=== PATIENT | male | born 1950 | race Caucasian/White ===

== ENCOUNTER 2017-08-04 18:58 | Inpatient (IN) | payer MEDICARE ==
[~2017-08-04] VITALS: Ht 170.2 cm; Wt 68.0 kg
[2017-08-04] MEDS ORDERED: ASPIRIN 81 MG TAB PO STA (18:59)
[2017-08-04] MEDS ORDERED: morphine 4 MG/ML VIAL IV STA (18:59)
[2017-08-04] MEDS ORDERED: HEPARIN 1000 UNITS/ML 10 ML INJ IV STA ×2 (18:59→19:06)
[2017-08-04] MEDS ORDERED: ONDANSETRON 4 MG INJ IV STA (18:59)
[2017-08-04] MEDS ORDERED: HEPARIN 1000 UNITS/ML 10 ML INJ ONE (19:15)
[2017-08-04] MEDS ORDERED: NITROGLYCERIN (IC) 100 MCG/ML INJ ONE (19:15)
[2017-08-04] MEDS ORDERED: LIDOCAINE 1% (MDV) 20 ML INJ ONE (19:15)
[2017-08-04] MEDS ORDERED: VERAPAMIL 5 MG INJ ONE (19:15)
[2017-08-04] MEDS ORDERED: IODIXANOL LOCM 100 ML BTL ONE (19:16)
[2017-08-04] MEDS ORDERED: IOHEXOL 350MG/ML 50 ML BTL ONE (19:16)
[2017-08-04 19:22] LABS: BASOPHIL # 0.1 10^3/ul (0.0-0.1); BASOPHILS % 0.6 % (0.0-2.0); EOSINOPHILS # 0.2 10^3/ul (0.0-0.5); EOSINOPHILS % 1.7 % (0.0-7.0); HEMOGLOBIN 16.1 g/dl (14.0-18.0); LYMPHOCYTES # 3.5 10^3/ul (0.8-2.9); LYMPHOCYTES % 39.4 % (15.0-51.0); MEAN CORPUSCULAR HGB CONC 34.3 g/dl (32.0-37.0); MEAN CORPUSCULAR VOLUME 90.6 fl (82.0-101.0); MEAN PLATELET VOLUME 10.9 fl (7.4-10.4); MONOCYTE # 0.6 10^3/ul (0.3-0.9); NEUTROPHIL # 4.5 10^3/ul (1.6-7.5); NEUTROPHILS % 50.4 % (39.0-77.0); PLATELET COUNT 241 10^3/UL (140-415); RED BLOOD COUNT 5.19 10^6/ul (4.70-6.10); RED CELL DISTRIBUTION WIDTH 12.6 % (11.5-14.5); WHITE BLOOD COUNT 8.9 10^3/ul (4.8-10.8)
--- NOTE | 2017-08-04 19:26 | ERD ---
ER Documentation Chief Complaint Chief Complaint chest pain all day, worse x1hr HPI This 67-year-old male was brought in by ambulance for severe chest pain and an EKG that showed STEMI. He started having squeezing chest pain this morning intermittently and is gotten worse throughout the day. And was severe when he called paramedics. He also has shortness of breath nausea and has vomited twice. He has a history of hypertension. ROS All systems reviewed and are negative except as per history of present illness. Physical Exam Vitals Physical Exam Const: [] Moderate distress Head: Atraumatic Eyes: Normal Conjunctiva ENT: Normal External Ears, Nose and Mouth. Neck: Full range of motion..~No JVD Resp: Clear to auscultation bilaterally Cardio: Regular rate and rhythm, no murmurs Abd: Soft, non tender, non distended. Normal bowel sounds Skin: No petechiae or rashes, diaphoretic Back: No midline or flank tenderness Ext: No cyanosis, or edema Neur: Awake and alert and oriented 3, no focal deficits Psych: Normal Mood and Affect Result Diagram: 08/04/17190408/04/171904 Results 24 hrs Current Medications Medications (Trade) Dose Ordered Sig/Aleah Route PRN Reason Start Time Stop Time Status Last Admin Dose Admin Aspirin (Aspirin) 162 mg ONCE STAT PO 08/04/17 18:59 08/04/17 19:02 DC 08/04/17 19:06 Heparin Sodium (Porcine) (Heparin (1000 Units/ml)) 4,000 unit ONCE STAT IV 08/04/17 18:59 08/04/17 19:02 DC 08/04/17 19:11 Ondansetron HCl (Zofran Inj) 4 mg ONCE STAT IV 08/04/17 18:59 08/04/17 19:03 DC 08/04/17 19:06 Morphine Sulfate (morphine) 4 mg ONCE STAT IV 08/04/17 18:59 08/04/17 19:03 DC 08/04/17 19:06 Procedures/MDM ST elevation myocardial infarction. Paramedics called with the elderly patient with possible STEMI. They electronically sent their prehospital EKG which I read and showed significant consistent ST elevations in leads I and aVL with reciprocal depressions in inferior leads. Data Warehousing Manager was immediately activated at 1852, Dr. Hylton was called at 1855. Patient arrived minutes later I evaluated and called back Dr. Corona to confirm that this definitely seemed good patient would require Data Warehousing Manager. Data Warehousing Manager team quickly arrived. Patient was given 162 mg of aspirin to complete 324 as well as Zofran, 5000 units of heparin and 600 mg of Plavix. Patient was hypertensive systolic approaching 170s a diastolic of about 90-100. Heart rate remained stable. Patient mental status remained good. He was transferred to the Data Warehousing Manager at 1918. He is a fall his laboratories and discussed this case with packing clerk. In determining which will be admitting this patient currently and I will place the admission order. His family arrived at the patient had gone to Data Warehousing Manager when I spoke with them and discussed the procedure with him as well as the monitor findings and condition of the patient. EKG interpretation: Mild ST elevations in leads I and aVL reciprocal depressions in leads II, III and aVF. Normal sinus rhythm. Normal axis. Elevations at this point I cannot consistently 1 mm and every beat however considering patient's prehospital EKG I believe this is still concerning for acute ischemic injury. general distillery worker interpretation: Normal sinus rhythm without arrhythmia Critical care time greater than 35 minutes: This includes prehospital EKG evaluation as well as discussion with packing clerk prehospital, discussion with patient, review of chart, monitoring of vital signs, administration of heparin and platelet inhibitors, continuing discussion with packing clerk, discussion with admitting doctor, question with patient's family members, multiple visits the patient's bedside and at least 10 minutes spent at the patient's bedside prior to leaving the emergency room. Not include any billable procedures. Departure Diagnosis: Primary Impression: STEMI (ST elevation myocardial infarction) Additional Impression: Renal insufficiency Condition: Critical DARIO COLES DO Aug 04, 2017 19:23 Critical care time greater than 35 minutes: This includes prehospital EKG evaluation as well as discussion with packing clerk prehospital, discussion with patient, review of chart, monitoring of vital signs, administration of heparin and platelet inhibitors, continuing discussion with packing clerk, discussion with admitting doctor, question with patient's family members, multiple visits the patient's bedside and at least 10 minutes spent at the patient's bedside prior to leaving the emergency room. Not include any billable procedures. Departure Diagnosis: Primary Impression: STEMI (ST elevation myocardial infarction) Condition: Critical DARIO COLES DO Aug 04, 2017 19:23
[2017-08-04] MEDS ORDERED: CLOPIDOGREL 75 MG TAB PO ONE (19:30)
[2017-08-04] MEDS ORDERED: FENTAnyl 50 MCG/ML VIAL ONE (19:33)
[2017-08-04] MEDS ORDERED: MIDAZOLAM 1 MG/ML 2 ML INJ ONE (19:33)
[2017-08-04 19:45] LABS: INR 0.86; PROTIME 11.7 Sec (12.2-14.2); PT RATIO 0.9
[2017-08-04 19:46] LABS: PARTIAL THROMBOPLASTIN TIME 24.5 Sec (25.0-35.0)
[2017-08-04 19:51] LABS: CALCIUM 9.7 mg/dl (8.4-10.2); CREATININE 1.29 mg/dl (0.61-1.24); POTASSIUM 3.8 mmol/L (3.5-5.1)
[2017-08-04 20:02] LABS: TROPONIN-I 0.013 ng/ml (0.00-0.12)
--- NOTE | 2017-08-04 20:28 | CONS ---
Date/Time of Note Date/Time of Note DATE: 08/04/17 TIME: 20:26 Assessment/Plan Assessment/Plan Problems: (1) STEMI (ST elevation myocardial infarction) Status: Acute Additional Assessment/Plan Critical care note STEMI pt will be given 5000 Heparin Plavix 600mg oral urgnet [facility] for acute [place] Consultation Date/Type/Reason Admit Date/Time Date of Consultation: Aug 04, 2017 Type of Consultation: Intervention Cardiology Reason for Consultation STEMI Hx of Present Illness Patient is came in with mid sternal CP, EKG found to have RACHEL ant and ant lat leads. Constitutional: diaphoresis Eyes: pain Past Medical History Medical History: coronary artery disease, high cholesterol, hypertension Social History Smoking Status: Never smoker Exam/Review of Systems Vital Signs Vitals Vital Signs Date Time Temp Pulse Resp B/P Pulse Ox O2 Delivery O2 Flow Rate FiO2 08/04/17 19:11 Nasal Cannula 2 08/04/17 19:02 78 16 165/103 97 Exam Constitutional: alert, oriented Head: normocephalic Eyes: nl conjunctiva ENMT: nl external ears & nose Neck: supple Respiratory: clear to auscultation Cardiovascular: regular rate and rhythm Gastrointestinal: soft Results Result Diagram: 08/04/17190408/04/171904 Results 24 hrs Laboratory Tests Test 08/04/17 19:05 White Blood Count 8.9 Red Blood Count 5.19 Hemoglobin 16.1 Hematocrit 47.0 Mean Corpuscular Volume 90.6 Mean Corpuscular Hemoglobin 31.0 Mean Corpuscular Hemoglobin Concent 34.3 Red Cell Distribution Width 12.6 Platelet Count 241 Mean Platelet Volume 10.9 H Neutrophils % 50.4 Lymphocytes % 39.4 Monocytes % 7.0 Eosinophils % 1.7 Basophils % 0.6 Nucleated Red Blood Cells % 0.0 Neutrophils # 4.5 Lymphocytes # 3.5 H Monocytes # 0.6 Eosinophils # 0.2 Basophils # 0.1 Nucleated Red Blood Cells # 0.0 Prothrombin Time 11.7 L Prothrombin Time Ratio 0.9 INR International Normalized Ratio 0.86 Activated Partial Thromboplast Time 24.5 L Sodium Level 145 H Potassium Level 3.8 Chloride Level 104 Carbon Dioxide Level 27 Anion Gap 18 H Blood Urea Nitrogen 19 Creatinine 1.29 H Glucose Level 211 Calcium Level 9.7 Troponin I 0.013 JESS MADRIGAL MD Aug 04, 2017 20:28
[2017-08-04 20:35] VITALS: PULSE 62
[2017-08-04 21:30] VITALS: BP 135/76; PULSE 69; RESP 12
[2017-08-04 22:00] VITALS: BP 133/75; PULSE 63; RESP 22
--- NOTE | 2017-08-04 22:01 | RADRPT ---
PROCEDURE: X-ray Chest. CLINICAL INDICATION: Chest pain. TECHNIQUE: Single view chest x-ray. COMPARISON: None available. FINDINGS: The cardiomediastinal silhouette is enlarged. There is diffuse prominence of the inters titium without focal consolidation, effusion, or pneumothorax. There are no acute osseous abnormali ties. IMPRESSION: 1. Cardiomegaly with findings suggestive of mild to moderate hydrostatic edema. Correlate clinicall y for CHF. RPTAT: HLBP .He Damon MD, Date Time Electronically viewed and signed by .He Damon MD, on 08/04/2017 22:01 .P/
[2017-08-04 22:30] VITALS: BP 137/77; PULSE 66; RESP 16
[2017-08-04 23:00] VITALS: BP 137/84; PULSE 58; RESP 13
[2017-08-04 23:14] VITALS: Ht 170.2 cm; Wt 68.0 kg
[2017-08-05] VITALS (25 sets, daily range): BP systolic 127–166; BP diastolic 73–100; PULSE 52–70; RESP 13–20
[2017-08-05] MEDS ORDERED: ZOLPIDEM 5 MG TAB PO PRN
[2017-08-05] MEDS ORDERED: SOD CHLORIDE 0.9% 1,000 ML IV SCH
[2017-08-05] MEDS ORDERED: morphine 2 MG INJ IV PRN ×2 (02:30)
[2017-08-05] MEDS ORDERED: ACETAMINOPHEN 325 MG TAB PO PRN ×2 (02:30)
[2017-08-05] MEDS ORDERED: ONDANSETRON 4 MG INJ IV PRN (02:30)
--- NOTE | 2017-08-05 04:02 | SP ---
DATE OF PROCEDURE: 08/04/2017 INDICATIONS FOR THE PROCEDURE: Acute ST elevation myocardial infarction. PROCEDURES: 1. Selective right and left coronary angiography. 2. Left ventricular pressure measurement and left heart catheterization with left ventriculography. 3. Acute myocardial infarction successful intervention of mid LAD with 3.5 x 12 mm and 3.0 x 38 mm drug-eluting stent. 4. Supervised procedural sedation intracoronary nitroglycerin injection. PROCEDURE DETAILS: After informed consent, the patient was brought to cardiac catheterization lab. Patient came in with a midsternal chest pressure-like symptom with ST elevation in anterior and ant erolateral leads. The patient has been explained in detail regarding the procedure and procedure co mplications as well as a family member and everybody understands and agrees. The patient was preppe d and draped in supine position on the cardiac catheterization lab. Right radial artery was accesse d with a 6-[place] slender sheath. Followed by that over the 0.035 wire, an EBU guiding catheter was engaged into left main, found to have acute LAD stenosis. A Runthrough wire was crossed the lesion and successful. A 2.5 x 12 mm balloon angioplasty was performed at 8 atmosphere with ELIA 3 flow. Followed by that, a 3.0 x 38 mm stent was placed into the diffusely diseased middle LAD segment and second stent proximal to that was placed 3.5 x 12 mm. Followed by that, post-dilatation was perfor med with a 3.5 x 15 mm noncompliant balloon at 16 atmospheres with a good angiographic result. Alyssa l angiography was taken in the left system with a good angiographic result. From there, exchanged i nto a JR4 diagnostic catheter, found to have a right coronary artery distal RCA 90% stenosis with a medium size vessel, stable chronic disease. There is also down in the RPL possibly a BANK CONSULTANT. Followed by that, the JR catheter was entered into the LV and LVEDP and LV gram was performed. All the catheters and wires had been removed over the wire without any complications. COMPLICATIONS: None. CONTRAST: mL. CORONARY FINDINGS: 1. Large left main, almost 6.0 to 8.0 mm with mild diffuse disease. 2. Left anterior descending artery: Proximal mild diffuse disease. Mid segment has a 99% thrombot ic lesion with ELIA 2 flow. There is a diffuse mid LAD multiple tandem 70% to 80% stenosis. There is distal LAD with moderate diffuse disease. 3. Left circumflex artery, mild diffuse disease, large circumflex has multiple OMs coming out. 4. Right coronary artery proximal and mid segment, mild diffuse disease. Distal RCA has a 99% sten osis going into the RPDA, medium size vessels. There is an RPL BANK CONSULTANT as well. LEFT VENTRICULAR FINDINGS: LVEDP is 15 mmHg. LVEF is 55%. No aortic stenosis. CONCLUSIONS: Successful acute thrombotic LAD intervention with a 3.5 x 12 mm and 3.0 x 38 mm drug-e luting stent. There is stable distal RCA 90% lesion. No other significant coronary artery disease. RECOMMENDATIONS: 1. Aspirin and Plavix at least for 1 year. 2. 2D echocardiography. 3. Admit to ICU. 4. IV hydration. 5. Dr. Brennan consultation for nephrology. Dictated By: JESS MADRIGAL MD ML/NICOLÁS Conf#: [id number] DID#: [id number]
[2017-08-05 05:30] LABS: CK-MB 23.6 ng/ml (0.0-2.4)
[2017-08-05 05:32] LABS: TROPONIN-I 4.27 ng/ml (0.00-0.12)
[2017-08-05] MEDS ORDERED: PANTOPRAZOLE 40 MG INJ IV SCH (06:00)
[2017-08-05 06:27] LABS: CK-MB 31.9 ng/ml (0.0-2.4)
[2017-08-05 06:29] LABS: TROPONIN-I 6.67 ng/ml (0.00-0.12)
--- NOTE | 2017-08-05 08:00 | HP ---
Date/Time of Note Date/Time of Note DATE: 08/05/17 TIME: 07:20 Assessment/Plan VTE Prophylaxis VTE Prophylaxis Intervention: SCD's Lines/Catheters IV Catheter Type (from Nrs): Peripheral IV Assessment/Plan Chief Complaint/Hosp Course This is a 67-year-old male being admitted to the ICU floor for: #1 #1 STEMI: EKG interpretation: ST elevations in leads I and aVL reciprocal depressions in leads II, III and aVF. Successful acute thrombotic LAD intervention with a 3.5 x 12 mm and 3.0 x 38 mm drug-eluting stent. 2D echocardiogram in a.m.1. Aspirin and Plavix at least for 1 year. Check lipid panel, statin. #2 hypertension: Continue monitor, restart home medications #3 acute kidney injury: Likely prerenal etiology, patient also underwent stenting. Will consult nephrology #4 DVT GI prophylaxis: SCDs, Protonix Further treatment strategy will be implemented as per the clinical course Problems: HPI/ROS Admit Date/Time Admit Date/Time Hx of Present Illness Chief complaint: Chest pain This 67-year-old male was brought in by ambulance for severe chest pain and an EKG that showed STEMI. He started having squeezing chest pain Monday morning intermittently and is gotten worse throughout the day. And was severe when he called paramedics. He also has shortness of breath nausea and has vomited twice. Allergies: NKDA Medications: See AMELIA ORTA Const: As per HPI Eyes : No pain discharge or redness or change in visual acuity ENT: No pain, sore throat, congestion, congestion, dysphagia or discharge Respiratory: No shortness of breath, cough, sputum, wheezing, or pleuritic pain Cardiovascular: As per HPI GI : no change in appetite, abdominal pain, nausea, vomiting, diarrhea, constipation, or change in the color his stool Genitourinary: No dysuria, hematuria, flank pain , discharge or CVA tenderness Musculoskeletal: No joint pain, back pain, neck pain, restricted range of motion in neck or joints Skin: No rash, bruising or hives Neuro: No headache, dizziness, syncope, seizure, focal weakness Endocrine: No polyuria, polydipsia, temperature intolerance Psych: No hallucination, depression, anxiety or suicidal ideation Eyes: pain PMH/Family/Social Past Medical History Medical History: coronary artery disease, high cholesterol, hypertension Past Surgical History Past Surgical Hx: no surgical history Family History Significant Family History: no pertinent family hx Social History Alcohol Use: none Smoking Status: Never smoker Drug Use: none Exam/Review of Systems Vital Signs Vitals Vital Signs Date Time Temp Pulse Resp B/P Pulse Ox O2 Delivery O2 Flow Rate FiO2 08/05/17 05:00 52 15 156/91 96 08/05/17 03:30 98.9 08/05/17 03:00 Room Air 08/04/17 19:11 2 Intake and Output 08/04/17 08/04/17 08/05/17 14:59 22:59 06:59 Intake Total 250 ml Output Total 2000 ml Balance -1750 ml Exam Exam General: Patient is status post cardiac catheterization, he is lying in bed sleeping easily arousable and in no acute distress HEENT: Atraumatic, normocephalic. The pupils are equal, round and reactive. Extraocular motor are intact Neck: Supple with full range of motion. No rigidity or meningismus Chest: Nontender Lungs: Clear to auscultation bilaterally no crackles rales or wheezing Heart: Normal S1-S2, Regular rhythm and rate. No overt murmurs appreciated Abdomen: Soft , nontender, nondistended , bowel sounds are present. No guarding no rebound tenderness , No masses or organomegaly. No costovertebral temporal angle mass Extremities: Normal to inspection, no edema no cyanosis Neurologic: Normal mental status, speech normal, cranial nerves II through XII are intact, motor and sensory are intact, no focal weakness Additional Comments EKG interpretation: Mild ST elevations in leads I and aVL reciprocal depressions in leads II, III and aVF. Normal sinus rhythm. Normal axis. PROCEDURE: X-ray Chest. CLINICAL INDICATION: Chest pain. TECHNIQUE: Single view chest x-ray. COMPARISON: None available. FINDINGS: The cardiomediastinal silhouette is enlarged. There is diffuse prominence of the interstitium without focal consolidation, effusion, or pneumothorax. There are no acute osseous abnormalities. IMPRESSION: 1. Cardiomegaly with findings suggestive of mild to moderate hydrostatic edema. Correlate clinically for CHF. RPTAT: HLBP .He Damon MD, MD Date Time Electronically viewed and signed by .He Damon MD, on 08/04/2017 22:01 .P/ CC: DARIO COLES DO CORONARY FINDINGS: 1. Large left main, almost 6.0 to 8.0 mm with mild diffuse disease. 2. Left anterior descending artery: Proximal mild diffuse disease. Mid segment has a 99% thrombotic lesion with ELIA 2 flow. There is a diffuse mid LAD multiple tandem 70% to 80% stenosis. There is distal LAD with moderate diffuse disease. 3. Left circumflex artery, mild diffuse disease, large circumflex has multiple OMs coming out. 4. Right coronary artery proximal and mid segment, mild diffuse disease. Distal RCA has a 99% stenosis going into the RPDA, medium size vessels. There is an RPL PROGRAM DIRECTOR/MORNING SHOW HOST as well. Labs Result Diagram: 08/04/17 19008/04/17 1905 Medications Medications Current Medications Sodium Chloride (NS) 1,000 ml @ 75 mls/hr [id number] IV Last administered on t 02:36; Admin Dose 75 MLS/HR; Start 08/05/17 at 00:00; Stop 08/05/17 at 12:00 Clopidogrel Bisulfate (plaVIX) 75 mg DAILY PO ; Start 08/05/17 at 09:00 Aspirin (Halfprin) 81 mg DAILY PO ; Start 08/05/17 at 09:00 Atorvastatin Calcium (Lipitor) 80 mg HS PO ; Start 08/05/17 at 21:00 Carvedilol (Coreg) 12.5 mg BID PO ; Start 08/05/17 at 09:00 Morphine Sulfate (morphine) 2 mg Q4H PRN IV PAIN; Start 08/05/17 at 00:00 Acetaminophen (Tylenol Tab) 325 mg Q4H PRN PO PAIN AND OR ELEVATED TEMP; Start 08/05/17 at 00:00 Zolpidem Tartrate (Ambien) 10 mg HS PRN PO INSOMNIA; Start 08/05/17 at 00:00 Ondansetron HCl (Zofran Inj) 4 mg Q6H PRN IV NAUSEA AND/OR VOMITING; Start at 02:30 Acetaminophen (Tylenol Tab) 650 mg Q6H PRN PO PAIN LEVEL 1-3 OR FEVER; Start 08/05/17 at 02:30 Morphine Sulfate (morphine) 2 mg Q4H PRN IV PAIN LEVEL 7-10; Start 08/05/17 at 02:30 Pantoprazole (Protonix Iv) 40 mg DAILY@06 IV Last administered on 08/05/17t 05 :26; Admin Dose 40 MG; Start 08/05/17 at 06:00 MIKE MIN Aug 05, 2017 08:00
[2017-08-05] MEDS: CLOPIDOGREL 75 MG TAB PO SCH (08:09)
[2017-08-05] MEDS: ASPIRIN (EC) 81 MG TAB PO SCH (08:09)
--- NOTE | 2017-08-05 13:38 | CONS ---
Date/Time of Note Date/Time of Note DATE: 08/05/17 TIME: 13:37 Assessment/Plan Assessment/Plan Additional Assessment/Plan 1. Acute kidney injury due to STEMI causing Prerenal azotemia + Cardiorenal syndrome 2. Acute STEMI s/p LHC with drug eluting stent placement in LAD 3. HTN 4. HL Plan : Thanks for consultion, pt has CALVIN due to # 1 Continue IVF NS-e xpecing cr to iproved with IVF hydration will order Urine eosinophils to assess for ELMO No need for renal US at this time we will continue to follow up on patient Thanks for consultation Consultation Date/Type/Reason Admit Date/Time Jul Date of Consultation: Aug 04, 2017 Type of Consultation: NEPHROLOGY Reason for Consultation acute kidney injury, STEMI s/p cardiac cath, to assess for contrast induced nephropathy Referring Provider: MIKE MIN Hx of Present Illness 67 M with PMhx of HTN, admitted with acute STEMI s/p LHC with stent placement in LAD, drug eluting stent. pt is noted to have elevated Cr and renal has been consulted for CALVIN, to assess for Contrast induced nephropathy. Subjective hx not possible: pt non-verbal Constitutional: diaphoresis Eyes: pain ENT: no complaints Respiratory: no complaints Cardiovascular: chest pain, lightheadedness Gastrointestinal: no complaints Genitourinary: no complaints Musculoskeletal: no complaints Skin: no complaints Neurologic: no complaints Endocrine: no complaints Lymphatic: no complaints Psychological: no complaints Immunologic: no complaints Past Medical History Medical History: coronary artery disease, high cholesterol, hypertension Past Surgical History Past Surgical Hx: no surgical history Social History Alcohol Use: none Smoking Status: Never smoker Drug Use: none Exam/Review of Systems Vital Signs Vitals Vital Signs Date Time Temp Pulse Resp B/P Pulse Ox O2 Delivery O2 Flow Rate FiO2 08/05/17 12:00 98.6 61 13 149/84 95 Room Air 08/05/17 08:00 2.0 Intake and Output 08/04/17 08/04/17 08/05/17 15:00 23:00 07:00 Intake Total 325 ml Output Total 2000 ml Balance -1675 ml Exam Constitutional: alert Psych: no complaints Head: normocephalic Eyes: nl conjunctiva ENMT: nl external ears & nose Neck: non-tender, supple Respiratory: clear to auscultation, normal air movement Cardiovascular: nl pulses, regular rate and rhythm Gastrointestinal: non-tender, soft Musculoskeletal: nl extremities to inspection, nl gait and stance Neurological: STRAPPER II-XII intact, nl mental status, nl speech, nl strength Skin: nl turgor, rash or lesions Lymph: nl lymph nodes Results Result Diagram: 08/04/17190408/04/171904 Results 24 hrs Laboratory Tests Test 08/04/17 19:05 08/05/17 02:24 08/05/17 04:33 White Blood Count 8.9 Red Blood Count 5.19 Hemoglobin 16.1 Hematocrit 47.0 Mean Corpuscular Volume 90.6 Mean Corpuscular Hemoglobin 31.0 Mean Corpuscular Hemoglobin Concent 34.3 Red Cell Distribution Width 12.6 Platelet Count 241 Mean Platelet Volume 10.9 H Neutrophils % 50.4 Lymphocytes % 39.4 Monocytes % 7.0 Eosinophils % 1.7 Basophils % 0.6 Nucleated Red Blood Cells % 0.0 Neutrophils # 4.5 Lymphocytes # 3.5 H Monocytes # 0.6 Eosinophils # 0.2 Basophils # 0.1 Nucleated Red Blood Cells # 0.0 Prothrombin Time 11.7 L Prothrombin Time Ratio 0.9 INR International Normalized Ratio 0.86 Activated Partial Thromboplast Time 24.5 L Sodium Level 145 H Potassium Level 3.8 Chloride Level 104 Carbon Dioxide Level 27 Anion Gap 18 H Blood Urea Nitrogen 19 Creatinine 1.29 H Glucose Level 211 Calcium Level 9.7 Troponin I 0.013 4.270 *H 6.670 *H Creatine Kinase 329 H 433 H Creatine Kinase Index 7.2 7.4 Creatinine Kinase MB (Mass) 23.60 H 31.90 H Medications Medications Current Medications Clopidogrel Bisulfate (plaVIX) 75 mg DAILY PO Last administered on 08/05/17 08:09; Admin Dose 75 MG; Start 08/05/17 at 09:00 Aspirin (Halfprin) 81 mg DAILY PO Last administered on 08/05/17 08:09; Admin Dose 81 MG; Start 08/05/17 at 09:00 Atorvastatin Calcium (Lipitor) 80 mg HS PO ; Start 08/05/17 at 21:00 Carvedilol (Coreg) 12.5 mg BID PO Last administered on 08/05/17 08:09; Admin Dose 12.5 MG; Start 08/05/17 at 09:00 Acetaminophen (Tylenol Tab) 325 mg Q4H PRN PO PAIN AND OR ELEVATED TEMP; Start 08/05/17 at 00:00 Zolpidem Tartrate (Ambien) 10 mg HS PRN PO INSOMNIA; Start 08/05/17 at 00:00 Ondansetron HCl (Zofran Inj) 4 mg Q6H PRN IV NAUSEA AND/OR VOMITING; Start at 02:30 Acetaminophen (Tylenol Tab) 650 mg Q6H PRN PO PAIN LEVEL 1-3 OR FEVER; Start 08/05/17 at 02:30 Morphine Sulfate (morphine) 2 mg Q4H PRN IV PAIN LEVEL 7-10; Start 08/05/17 at 02:30 Pantoprazole (Protonix Tab) 40 mg DAILY@06 PO ; Start 08/06/17 at 06:00 DUSTIN AGUILAR MD Aug 05, 2017 13:38
[2017-08-05] MEDS ORDERED: hydrALAzine 20 MG INJ IV PRN (14:00)
[2017-08-05] MEDS ORDERED: HYDROCODONE/APAP (5/325) TAB PO PRN (14:00)
[2017-08-05 15:36] LABS: BASOPHILS % 0.3 % (0.0-2.0); EOSINOPHILS # 0.2 10^3/ul (0.0-0.5); EOSINOPHILS % 1.8 % (0.0-7.0); HEMATOCRIT 42.5 % (42.0-52.0); HEMOGLOBIN 14.7 g/dl (14.0-18.0); LYMPHOCYTES # 1.9 10^3/ul (0.8-2.9); LYMPHOCYTES % 20.3 % (15.0-51.0); MEAN CORPUSCULAR HEMOGLOBIN 31.1 pg (29.0-33.0); MEAN CORPUSCULAR HGB CONC 34.6 g/dl (32.0-37.0); MEAN PLATELET VOLUME 10.5 fl (7.4-10.4); MONOCYTE # 0.8 10^3/ul (0.3-0.9); MONOCYTES % 8.2 % (0.0-11.0); NEUTROPHIL # 6.6 10^3/ul (1.6-7.5); NEUTROPHILS % 68.7 % (39.0-77.0); PLATELET COUNT 211 10^3/UL (140-415); RED BLOOD COUNT 4.72 10^6/ul (4.70-6.10); RED CELL DISTRIBUTION WIDTH 12.5 % (11.5-14.5); WHITE BLOOD COUNT 9.5 10^3/ul (4.8-10.8)
[2017-08-05 16:00] LABS: CALCIUM 8.6 mg/dl (8.4-10.2); CREATININE 1.26 mg/dl (0.61-1.24); MAGNESIUM 1.8 mg/dl (1.7-2.5); PHOSPHORUS 3.4 mg/dl (2.5-4.9); POTASSIUM 3.9 mmol/L (3.5-5.1)
[2017-08-05 19:36] LABS: CALCIUM 8.6 mg/dl (8.4-10.2); CREATININE 1.19 mg/dl (0.61-1.24)
[2017-08-05] MEDS ORDERED: ATORVASTATIN 80 MG TAB PO SCH (21:00)
[2017-08-06] VITALS (7 sets, daily range): BP systolic 113–131; BP diastolic 66–82; PULSE 59–63; RESP 18–20
[2017-08-06] MEDS ORDERED: PANTOPRAZOLE (EC) 40 MG TAB PO SCH (06:00)
[2017-08-06] MEDS: ASPIRIN (EC) 81 MG TAB PO SCH (08:41)
[2017-08-06] MEDS: CLOPIDOGREL 75 MG TAB PO SCH (08:41)
[2017-08-06 09:35] LABS: HAAIG REFLEX REFLEX FILED
[2017-08-06 09:40] LABS: BASOPHILS % 0.4 % (0.0-2.0); EOSINOPHILS # 0.2 10^3/ul (0.0-0.5); EOSINOPHILS % 1.5 % (0.0-7.0); HEMATOCRIT 45.6 % (42.0-52.0); HEMOGLOBIN 15.3 g/dl (14.0-18.0); LYMPHOCYTES # 2.5 10^3/ul (0.8-2.9); LYMPHOCYTES % 23.3 % (15.0-51.0); MEAN CORPUSCULAR HGB CONC 33.6 g/dl (32.0-37.0); MEAN CORPUSCULAR VOLUME 89.4 fl (82.0-101.0); MONOCYTE # 0.8 10^3/ul (0.3-0.9); MONOCYTES % 7.1 % (0.0-11.0); NEUTROPHIL # 7.3 10^3/ul (1.6-7.5); PLATELET COUNT 210 10^3/UL (140-415); RED CELL DISTRIBUTION WIDTH 12.7 % (11.5-14.5); WHITE BLOOD COUNT 10.9 10^3/ul (4.8-10.8)
[2017-08-06 10:02] LABS: INR 0.88; PROTIME 11.9 Sec (12.2-14.2); PT RATIO 0.9
[2017-08-06 10:06] LABS: ALBUMIN 3.8 g/dl (3.3-4.9); ALBUMIN/GLOBULIN RATIO 1.02; BILIRUBIN,INDIRECT 0.5 mg/dl (0-1.1); BILIRUBIN,TOTAL 0.5 mg/dl (0.2-1.3); CALCIUM 9.2 mg/dl (8.4-10.2); CREATININE 1.2 mg/dl (0.61-1.24); POTASSIUM 4.3 mmol/L (3.5-5.1); TOTAL PROTEIN 7.5 g/dl (6.1-8.1)
[2017-08-06 10:08] LABS: CHOL/HDL RATIO 3.7 RATIO; MAGNESIUM 1.9 mg/dl (1.7-2.5); PHOSPHORUS 3.2 mg/dl (2.5-4.9)
[2017-08-06 10:54] LABS: HEPATITIS B CORE ANTIBODY NEGATIVE (NEGATIVE)
--- NOTE | 2017-08-06 11:16 | CONS ---
Date/Time of Note Date/Time of Note DATE: 08/06/17 TIME: 11:15 Consult Date/Type/Reason Admit Date/Time Aug 04, 2017 at 22:25 Initial Consult Date 08/04/17 Type of Consultation: Cardiology Ordering Provider: MIKE MIN Objective Vital Signs Date Time Temp Pulse Resp B/P Pulse Ox O2 Delivery O2 Flow Rate FiO2 08/06/17 08:39 98.0 66 18 131/82 98 08/05/17 16:00 Room Air 08/05/17 08:00 2.0 Intake and Output 08/05/17 08/05/17 08/06/17 14:59 22:59 06:59 Intake Total 300 ml 500 ml Output Total 450 ml 400 ml Balance -150 ml 100 ml Results/Medications Result Diagram: 08/06/17 0832 08/06/17 0832 Results 24 hrs Laboratory Tests Test 08/05/17 15:23 08/05/17 19:00 08/06/17 08:32 White Blood Count 9.5 10.9 H Red Blood Count 4.72 5.10 Hemoglobin 14.7 15.3 Hematocrit 42.5 45.6 Mean Corpuscular Volume 90.0 89.4 Mean Corpuscular Hemoglobin 31.1 30.0 Mean Corpuscular Hemoglobin Concent 34.6 33.6 Red Cell Distribution Width 12.5 12.7 Platelet Count 211 210 Mean Platelet Volume 10.5 H 11.0 H Neutrophils % 68.7 67.0 Lymphocytes % 20.3 23.3 Monocytes % 8.2 7.1 Eosinophils % 1.8 1.5 Basophils % 0.3 0.4 Nucleated Red Blood Cells % 0.0 0.0 Neutrophils # 6.6 7.3 Lymphocytes # 1.9 2.5 Monocytes # 0.8 0.8 Eosinophils # 0.2 0.2 Basophils # 0.0 0.0 Nucleated Red Blood Cells # 0.0 0.0 Sodium Level 139 138 140 Potassium Level 3.9 4.0 4.3 Chloride Level 106 106 106 Carbon Dioxide Level 25 22 25 Anion Gap 12 14 13 Blood Urea Nitrogen 13 15 16 Creatinine 1.26 H 1.19 1.20 Glucose Level 131 # 126 131 Hemoglobin A1c 6.9 H Calcium Level 8.6 8.6 9.2 Phosphorus Level 3.4 3.2 Magnesium Level 1.8 1.9 Prothrombin Time 11.9 L Prothrombin Time Ratio 0.9 INR International Normalized Ratio 0.88 Activated Partial Thromboplast Time 26.0 Uric Acid 7.0 Total Bilirubin 0.5 Direct Bilirubin 0.00 Indirect Bilirubin 0.5 Aspartate Amino Transf (AST/SGOT) 55 H Alanine Aminotransferase (ALT/SGPT) 44 Alkaline Phosphatase 57 Total Protein 7.5 Albumin 3.8 Globulin 3.70 H Albumin/Globulin Ratio 1.02 Triglycerides Level 147 Cholesterol Level 226 H LDL Cholesterol, Calculated 137 HDL Cholesterol 60 Cholesterol/HDL Ratio 3.7 Hepatitis A Antibody Total POSITIVE H Hepatitis B Surface Antigen NEGATIVE Hepatitis B Core Total Antibody NEGATIVE Hepatitis C Antibody NEGATIVE HIV (1&2) Antibody NEGATIVE Medications Current Medications Clopidogrel Bisulfate (plaVIX) 75 mg DAILY PO Last administered on 08/06/17 08:41; Admin Dose 75 MG; Start 08/05/17 at 09:00 Aspirin (Halfprin) 81 mg DAILY PO Last administered on 08/06/17 08:41; Admin Dose 81 MG; Start 08/05/17 at 09:00 Atorvastatin Calcium (Lipitor) 80 mg HS PO Last administered on 08/05/17 20: 31; Admin Dose 80 MG; Start 08/05/17 at 21:00 Carvedilol (Coreg) 12.5 mg BID PO Last administered on 08/06/17 08:41; Admin Dose 12.5 MG; Start 08/05/17 at 09:00 Zolpidem Tartrate (Ambien) 10 mg HS PRN PO INSOMNIA; Start 08/05/17 at 00:00 Ondansetron HCl (Zofran Inj) 4 mg Q6H PRN IV NAUSEA AND/OR VOMITING; Start at 02:30 Acetaminophen (Tylenol Tab) 650 mg Q6H PRN PO PAIN LEVEL 1-3 OR FEVER; Start 08/05/17 at 02:30 Morphine Sulfate (morphine) 2 mg Q4H PRN IV PAIN LEVEL 7-10; Start 08/05/17 at 02:30 Pantoprazole (Protonix Tab) 40 mg DAILY@06 PO Last administered on 08/06/17 06:33; Admin Dose 40 MG; Start 08/06/17 at 06:00 Hydralazine HCl (Apresoline) 10 mg Q6H PRN IV SBP>160; Start 08/05/17 at 14:00 Acetaminophen/ Hydrocodone Bitart ([place] (5/325)) 1 tab Q6H PRN PO Pain Last administered on 08/05/17t 14:12; Admin Dose 1 TAB; Start 08/05/17 at 14:00 Assessment/Plan Chief Complaint/Hosp Course Patient is came in with mid sternal CP, EKG found to have RACHEL ant and ant lat leads. Problems: Additional Assessment/Plan Pt post STEMI Lad STABLE PLAN TO D.C HOME TODAYY ASA PLAVIX STATIN BB CR IMPROVED CARDIAC REHAB OUT PT D/W FAMILY JESS MADRIGAL MD Aug 06, 2017 11:16
--- NOTE | 2017-08-06 12:04 | CONS ---
Date/Time of Note Date/Time of Note DATE: 08/06/17 TIME: 12:00 Assessment/Plan Assessment/Plan Chief Complaint/Hosp Course 67 M with PMhx of HTN, admitted with acute STEMI s/p C with stent placement in LAD, drug eluting stent. pt is noted to have elevated Cr and renal has been consulted for CALVIN, to assess for Contrast induced nephropathy. Problems: Additional Assessment/Plan 1. Acute kidney injury due to STEMI causing Prerenal azotemia + Cardiorenal syndrome 2. Acute STEMI s/p LHC with drug eluting stent placement in LAD 3. HTN 4. HL Plan : Cr improved to 1.2 with IV Fluids, d/c IVF NS continue current meds, ok to have ACEI/ARB- we will start lisinopril 2.5 mg po daily No need for renal US at this time we will continue to follow up on patient Consultation Date/Type/Reason Admit Date/Time Aug 04, 2017 at 22:25 Initial Consult Date 08/04/17 Type of Consultation: NEPHROLOGY Referring Provider: MIKE MIN 24 HR Interval Summary Free Text/Dictation Cr improved to 1.2, BP stable, afebrile Exam/Review of Systems Vital Signs Vitals Vital Signs Date Time Temp Pulse Resp B/P Pulse Ox O2 Delivery O2 Flow Rate FiO2 08/06/17 08:39 98.0 66 18 131/82 98 08/05/17 16:00 Room Air 08/05/17 08:00 2.0 Intake and Output 08/05/17 08/05/17 08/06/17 15:00 23:00 07:00 Intake Total 225 ml 500 ml Output Total 450 ml 400 ml Balance -225 ml 100 ml Exam Constitutional: alert Respiratory: clear to auscultation, normal air movement Cardiovascular: nl pulses, regular rate and rhythm Gastrointestinal: non-tender, soft Musculoskeletal: nl extremities to inspection, nl gait and stance Neurological: CUSTOMER STRATEGY MANAGER II-XII intact, nl mental status, nl speech, nl strength Results Result Diagram: 08/06/17 0832 08/06/17 0832 Results 24 hrs Laboratory Tests Test 08/05/17 15:23 08/05/17 19:00 08/06/17 08:32 White Blood Count 9.5 10.9 H Red Blood Count 4.72 5.10 Hemoglobin 14.7 15.3 Hematocrit 42.5 45.6 Mean Corpuscular Volume 90.0 89.4 Mean Corpuscular Hemoglobin 31.1 30.0 Mean Corpuscular Hemoglobin Concent 34.6 33.6 Red Cell Distribution Width 12.5 12.7 Platelet Count 211 210 Mean Platelet Volume 10.5 H 11.0 H Neutrophils % 68.7 67.0 Lymphocytes % 20.3 23.3 Monocytes % 8.2 7.1 Eosinophils % 1.8 1.5 Basophils % 0.3 0.4 Nucleated Red Blood Cells % 0.0 0.0 Neutrophils # 6.6 7.3 Lymphocytes # 1.9 2.5 Monocytes # 0.8 0.8 Eosinophils # 0.2 0.2 Basophils # 0.0 0.0 Nucleated Red Blood Cells # 0.0 0.0 Sodium Level 139 138 140 Potassium Level 3.9 4.0 4.3 Chloride Level 106 106 106 Carbon Dioxide Level 25 22 25 Anion Gap 12 14 13 Blood Urea Nitrogen 13 15 16 Creatinine 1.26 H 1.19 1.20 Glucose Level 131 # 126 131 Hemoglobin A1c 6.9 H Calcium Level 8.6 8.6 9.2 Phosphorus Level 3.4 3.2 Magnesium Level 1.8 1.9 Prothrombin Time 11.9 L Prothrombin Time Ratio 0.9 INR International Normalized Ratio 0.88 Activated Partial Thromboplast Time 26.0 Uric Acid 7.0 Total Bilirubin 0.5 Direct Bilirubin 0.00 Indirect Bilirubin 0.5 Aspartate Amino Transf (AST/SGOT) 55 H Alanine Aminotransferase (ALT/SGPT) 44 Alkaline Phosphatase 57 Total Protein 7.5 Albumin 3.8 Globulin 3.70 H Albumin/Globulin Ratio 1.02 Triglycerides Level 147 Cholesterol Level 226 H LDL Cholesterol, Calculated 137 HDL Cholesterol 60 Cholesterol/HDL Ratio 3.7 Hepatitis A Antibody Total POSITIVE H Hepatitis B Surface Antigen NEGATIVE Hepatitis B Core Total Antibody NEGATIVE Hepatitis C Antibody NEGATIVE HIV (1&2) Antibody NEGATIVE Medications Medications Current Medications Clopidogrel Bisulfate (plaVIX) 75 mg DAILY PO Last administered on 08/06/17 08:41; Admin Dose 75 MG; Start 08/05/17 at 09:00 Aspirin (Halfprin) 81 mg DAILY PO Last administered on 08/06/17 08:41; Admin Dose 81 MG; Start 08/05/17 at 09:00 Atorvastatin Calcium (Lipitor) 80 mg HS PO Last administered on 08/05/17 20: 31; Admin Dose 80 MG; Start 08/05/17 at 21:00 Carvedilol (Coreg) 12.5 mg BID PO Last administered on 08/06/17 08:41; Admin Dose 12.5 MG; Start 08/05/17 at 09:00 Zolpidem Tartrate (Ambien) 10 mg HS PRN PO INSOMNIA; Start 08/05/17 at 00:00 Ondansetron HCl (Zofran Inj) 4 mg Q6H PRN IV NAUSEA AND/OR VOMITING; Start at 02:30 Acetaminophen (Tylenol Tab) 650 mg Q6H PRN PO PAIN LEVEL 1-3 OR FEVER; Start 08/05/17 at 02:30 Morphine Sulfate (morphine) 2 mg Q4H PRN IV PAIN LEVEL 7-10; Start 08/05/17 at 02:30 Pantoprazole (Protonix Tab) 40 mg DAILY@06 PO Last administered on 08/06/17 06:33; Admin Dose 40 MG; Start 08/06/17 at 06:00 Hydralazine HCl (Apresoline) 10 mg Q6H PRN IV SBP>160; Start 08/05/17 at 14:00 Acetaminophen/ Hydrocodone Bitart ([place] (5/325)) 1 tab Q6H PRN PO Pain Last administered on 08/05/17 14:12; Admin Dose 1 TAB; Start 08/05/17 at 14:00 DUSTIN AGUILAR MD Aug 06, 2017 12:04
[2017-08-06] MEDS ORDERED: LISINOPRIL 5 MG TAB PO ONE (12:30)
--- NOTE | 2017-08-06 12:44 | PDOCDIS ---
Discharge Instructions DIAGNOSIS Discharge Diagnosis STEMI CONDITION Patient Condition: Stable HOME CARE INSTRUCTIONS: Special Diet: Cardiac Diet, Low carbohydrate FOLLOW UP/APPOINTMENTS Follow-up Plan Ashlee Hall MD Specialty Interventional Cardiology Office Address [facility] [address] [address], [address] [place] [address] Office OTHER ORDERS: Other Orders: 1. Low cholesterol, low carbohydrate diet. 2. Take medications as per prescription. 3. Follow-up with Dr. Hall as scheduled. 4. Follow-up with your PCP and check hemoglobin A1C for diabetes in 4-6 weeks. 5. Please call 911 or go to the nearest ER if you have any chest pain. JANY MC NP Aug 06, 2017 12:44
[2017-08-06] MEDS ORDERED: LISI-313 PO (13:01)
[2017-08-06] MEDS ORDERED: CARV12.579 PO (13:01)
[2017-08-06] MEDS ORDERED: CLOP75TA28 PO (13:01)
[2017-08-06] MEDS ORDERED: ASPI-664 PO (13:01)
[2017-08-06] MEDS ORDERED: ATOR80TA75 PO (13:01)
--- NOTE | 2017-08-06 14:12 | DS ---
Date/Time of Note Date/Time of Note DATE: 08/06/17 TIME: 14:10 Discharge Summary Admission/Discharge Info Admit Date/Time Aug 04, 2017 at 22:25 Discharge Date/Time Discharge Diagnosis 1. ST elevation myocardial infarction. Status post placement of a drug- eluting stent to the left anterior descending artery. 2. Essential hypertension. 3. Dyslipidemia. 4. Diabetes mellitus. Newly diagnosed versus undiagnosed. 5. Acute kidney injury. Resolved. Patient Condition: Stable Consults 1. Kristi Hall MD, Cardiology. 2. Isaias Brennan MD, Nephrology. Procedures CXR IMPRESSION: 1. Cardiomegaly with findings suggestive of mild to moderate hydrostatic edema. Correlate clinically for CHF. Selective Right and Left Coronary Angiography. CONCLUSIONS: Successful acute thrombotic LAD intervention with a 3.5 x 12 mm and 3.0 x 38 mm drug-eluting stent. There is stable distal RCA 90% lesion. No other significant coronary artery disease. Hx of Present Illness Chief complaint: Chest pain This 67-year-old male was brought in by ambulance for severe chest pain and an EKG that showed STEMI. He started having squeezing chest pain Monday morning intermittently and is gotten worse throughout the day and was severe when he called paramedics. He also had shortness of breath nausea and had vomited twice. Allergies: NKDA Medications: See MAR Hospital Course The patient was taken to the cardiac Cook Pressure and the patient underwent a left heart catheterization with LAD intervention with a drug-eluting stent. The coronary angiography also found a stable distal RCA 90% lesion. Postprocedure, the patient was transferred to intensive care unit. The patient was started on dual antiplatelet therapy. The patient's cardiac medications were optimized by cardiology. The patient has underlying dyslipidemia. He was started on high- dose statins. The patient was noticed to have acute kidney injury on his initial labs. Hence a nephrology consult was obtained. The patient was adequately hydrated using IV fluids. Nephrotoxic drugs were used with caution. The patient's renal function improved throughout the patient's hospital course. The patient was noticed to have diabetes with hemoglobin A1c of 6.9. The patient denied any prior history of diabetes. The patient's diabetes could be newly diagnosed versus undiagnosed. Nevertheless, the patient's blood sugars remained stable throughout the patient's hospital course. Hence the patient was not started on any treatment. The patient ideally needs to be started on metformin. However because of the recent renal failure and use of contrast, it is reasonable to wait until his renal failure improves and if the patient's hemoglobin A1c continues to be elevated after 4-6 weeks, the patient needs to be started on appropriate antidiabetic therapy. The patient was advised on a low carbohydrate diet. The patient had a stable hospital course. The patient was cleared by cardiology to be discharged home. The patient denied any complaints at the time of discharge. Discharge Instructions 1. Low cholesterol, low carbohydrate diet. 2. Take medications as per prescription. 3. Follow-up with Dr. Hall as scheduled. 4. Follow-up with your PCP and check hemoglobin A1C for diabetes in 4-6 weeks. 5. Please call 911 or go to the nearest ER if you have any chest pain. The patient verbalized understanding of his discharge instructions. At this time I would like to thank all the consultants for seeing the patient, doing the necessary procedures, and providing clinical recommendations. Case discussed with Dr. Cornejo. Home Meds Active Scripts Lisinopril* (Lisinopril*) 5 Mg Tablet, 2.5 MG PO DAILY, #30 TAB Prov:JANY MC NP 08/06/17 Aspirin* (Aspirin* EC) 81 Mg Tablet.dr 81 MG PO DAILY, #30 TAB Prov:JANY MC NP 08/06/17 Carvedilol* (Carvedilol*) 12.5 Mg Tablet, 12.5 MG PO BID, #60 TAB Prov:JANY MC NP 08/06/17 Atorvastatin* (Atorvastatin*) 80 Mg Tablet, 80 MG PO HS, #30 TAB Prov:JANY MC NP 08/06/17 Clopidogrel Bisulfate (Clopidogrel) 75 Mg Tablet, 75 MG PO DAILY, #30 TAB Prov:JANY MC NP 08/06/17 Follow-up Plan Ashlee Hall MD Specialty Interventional Cardiology Office Address [facility] [address] [place] [address]., [address] [place] [address] Office Primary Care Provider Care Physician No Primary Time spent on discharge: > 30 minutes Pending Labs Laboratory Tests Test 08/05/17 15:23 08/05/17 19:00 08/06/17 08:32 White Blood Count 9.510^3/ul (4.8-10.8) 10.910^3/ul (4.8-10.8) Red Blood Count 4.7210^6/ul (4.70-6.10) 5.1010^6/ul (4.70-6.10) Hemoglobin 14.7g/dl (14.0-18.0) 15.3g/dl (14.0-18.0) Hematocrit 42.5% (42.0-52.0) 45.6% (42.0-52.0) Mean Corpuscular Volume 90.0fl (82.0-101.0) 89.4fl (82.0-101.0) Mean Corpuscular Hemoglobin 31.1pg (29.0-33.0) 30.0pg (29.0-33.0) Mean Corpuscular Hemoglobin Concent 34.6g/dl (32.0-37.0) 33.6g/dl (32.0-37.0) Red Cell Distribution Width 12.5% (11.5-14.5) 12.7% (11.5-14.5) Platelet Count 32864^3/UL (140-415) 08282^3/UL (140-415) Mean Platelet Volume 10.5fl (7.4-10.4) 11.0fl (7.4-10.4) Neutrophils % 68.7% (39.0-77.0) 67.0% (39.0-77.0) Lymphocytes % 20.3% (15.0-51.0) 23.3% (15.0-51.0) Monocytes % 8.2% (0.0-11.0) 7.1% (0.0-11.0) Eosinophils % 1.8% (0.0-7.0) 1.5% (0.0-7.0) Basophils % 0.3% (0.0-2.0) 0.4% (0.0-2.0) Nucleated Red Blood Cells % 0.0/100WBC (0.0-0.0) 0.0/100WBC (0.0-0.0) Neutrophils # 6.610^3/ul (1.6-7.5) 7.310^3/ul (1.6-7.5) Lymphocytes # 1.910^3/ul (0.8-2.9) 2.510^3/ul (0.8-2.9) Monocytes # 0.810^3/ul (0.3-0.9) 0.810^3/ul (0.3-0.9) Eosinophils # 0.210^3/ul (0.0-0.5) 0.210^3/ul (0.0-0.5) Basophils # 0.010^3/ul (0.0-0.1) 0.010^3/ul (0.0-0.1) Nucleated Red Blood Cells # 0.010^3/ul (0.0-0.0) 0.010^3/ul (0.0-0.0) Sodium Level 139mmol/L (135-144) 138mmol/L (135-144) 140mmol/L (135-144) Potassium Level 3.9mmol/L (3.5-5.1) 4.0mmol/L (3.5-5.1) 4.3mmol/L (3.5-5.1) Chloride Level 106mmol/L (97-110) 106mmol/L (97-110) 106mmol/L (97-110) Carbon Dioxide Level 25mmol/L (21-31) 22mmol/L (21-31) 25mmol/L (21-31) Anion Gap 12 (8-16) 14 (8-16) 13 (8-16) Blood Urea Nitrogen 13mg/dl (7-20) 15mg/dl (7-20) 16mg/dl (7-20) Creatinine 1.26mg/dl (0.61-1.24) 1.19mg/dl (0.61-1.24) 1.20mg/dl (0.61-1.24) Glucose Level 131mg/dl (70-220) 126mg/dl (70-220) 131mg/dl (70-220) Hemoglobin A1c 6.9% (0-5.9) Calcium Level 8.6mg/dl (8.4-10.2) 8.6mg/dl (8.4-10.2) 9.2mg/dl (8.4-10.2) Phosphorus Level 3.4mg/dl (2.5-4.9) 3.2mg/dl (2.5-4.9) Magnesium Level 1.8mg/dl (1.7-2.5) 1.9mg/dl (1.7-2.5) Prothrombin Time 11.9Sec (12.2-14.2) Prothrombin Time Ratio 0.9 INR International Normalized Ratio 0.88 Activated Partial Thromboplast Time 26.0Sec (25.0-35.0) Uric Acid 7.0mg/dl (3.1-7.9) Total Bilirubin 0.5mg/dl (0.2-1.3) Direct Bilirubin 0.00mg/dl (0.00-0.20) Indirect Bilirubin 0.5mg/dl (0-1.1) Aspartate Amino Transf (AST/SGOT) 55IU/L (15-46) Alanine Aminotransferase (ALT/SGPT) 44IU/L (13-69) Alkaline Phosphatase 57IU/L (42-121) Total Protein 7.5g/dl (6.1-8.1) Albumin 3.8g/dl (3.3-4.9) Globulin 3.70g/dl (1.3-3.2) Albumin/Globulin Ratio 1.02 Triglycerides Level 147mg/dl (0-149) Cholesterol Level 226mg/dl (100-200) LDL Cholesterol, Calculated 137mg/dl HDL Cholesterol 60mg/dl (30-78) Cholesterol/HDL Ratio 3.7RATIO Hepatitis A Antibody Total POSITIVE (NEGATIVE) Hepatitis B Surface Antigen NEGATIVE (NEGATIVE) Hepatitis B Surface Antibody NEGATIVE (NEGATIVE) Hepatitis B Core Total Antibody NEGATIVE (NEGATIVE) Hepatitis C Antibody NEGATIVE (NEGATIVE) HIV (1&2) Antibody NEGATIVE (NEGATIVE) JANY MC NP Aug 06, 2017 14:12
--- NOTE | 2017-08-06 16:40 | RADRPT ---
Vent Rate: 62 bpm RR Interval: 0 msec CO Interval: 152 msec QRS Duration: 104 msec QT Interval: 486 msec QTC Interval: 493 msec P-R-T [place]: 30 - 28 - 151 degrees Normal sinus rhythm ST amp; T wave abnormality, consider anterolateral ischemia Prolonged QT Abnormal ECG Electronically Signed By: Braulio Interiano [id number]
[2017-08-07] MEDS ORDERED: LISINOPRIL 5 MG TAB PO SCH (09:00)
--- NOTE | 2017-08-08 22:35 | RADRPT ---
Vent Rate: 64 bpm RR Interval: 0 msec SC Interval: 146 msec QRS Duration: 98 msec QT Interval: 416 msec QTC Interval: 429 msec P-R-T [place]: 25 - 12 - -15 degrees Normal sinus rhythm ST elevation, consider anterior and lateral injury or acute infarct Abnormal ECG Electronically Signed By: Donovan Randhawa [id number]
--- NOTE | 2017-08-10 08:42 | RADRPT ---
Echocardiogram Report PRELIMINARY Patient Name: MARICRUZ PAPPAS Gender: Male Date: 1950 Study Date: 05-Aug-2017 Application Programmer Analyst: FINN Location: 120 Ref. Physician: JESS MADRIGAL Quality: Good Procedures: Transthoracic echocardiogram with complete 2D, M-Mode, and doppler examination. Indications: S/P Angiogram. 2D/M Mode Doppler Measurement Value Normal Ranges Measurement Value Normal Ranges AoR Diam MM 3.5 cm CHING Vmax 2.2 cm2 LA/Ao MM 1.1 CHING VTI 2.2 cm2 LA Dimen MM 3.8 cm AV Peak [place] 1.3 m/sec LVIDd 2D 5.2 3.5 - 5.6 cm AV Peak PG 6.4 mmHg LVIDs 2D 3.9 2.1 - 4.1 cm LVOT Peak [place] 0.9 m/sec LVPWd 2D 1.1 0.6 - 1.1 cm LVOT Peak PG 3.3 mmHg IVSd 2D 1.1 0.6 - 1.1 cm MV E Peak [place] 0.8 m/sec EDV 2D 130.8 cm3 MV A Peak [place] 0.6 m/sec ESV 2D 59.2 cm3 MV E/A 1.3 EF 2D 50.0 50.0 - 65.0 % MV Decel Time 145 msec LVOT Diam 2.0 cm MV Decel [place] 5 MV E/A 1.3 TR Peak [place]ques 2.7 m/sec TR Peak PG 28.3 mmHg RVSP 31.0 mmHg Findings Left Ventricle: Lower limits of normal systolic function. Normal left ventricular cavity size. Normal left ventricular wall thickness. Ejection fraction is visually estimated at 50 %. These segments of the LV are hypokinetic apical lateral segment and apical septum. These segments of the LV are akinetic apical cap. Right Ventricle: Normal right ventricular size. Normal right ventricular systolic function. Left Atrium: The left atrium is normal in size. Right Atrium: The right atrium is normal in size. Mitral Valve: Normal appearance of the mitral valve. Mild mitral annular calcification. Mild to moderate mitral valve regurgitation by color. Aortic Valve: Normal appearance of the aortic valve. No significant aortic stenosis with trivial insufficiency. Tricuspid Valve: Normal appearance of the tricuspid valve. Estimated peak PA systolic pressure 31 mmHg. There is mild tricuspid regurgitation. Pulmonic Valve: Normal pulmonic valve appearance. There is trace to mild pulmonic regurgitation. Pericardium: Normal pericardium with no significant pericardial effusion. Aorta: Normal aortic root. IVC: Normal size and normal respiratory collapse consistent with normal right atrial pressure. Conclusions Lower limits of normal systolic function. Normal left ventricular cavity size. Normal left ventricular wall thickness. Ejection fraction is visually estimated at 50 %. These segments of the LV are hypokinetic apical lateral segment and apical septum. These segments of the LV are akinetic apical cap. Normal right ventricular size. Normal right ventricular systolic function. The right atrium is normal in size. Normal appearance of the mitral valve. Mild mitral annular calcification. Mild to moderate mitral valve regurgitation by color. Normal appearance of the aortic valve. No significant aortic stenosis with trivial insufficiency. Normal appearance of the tricuspid valve. Estimated peak PA systolic pressure 31 mmHg. There is mild tricuspid regurgitation. Normal pericardium with no significant pericardial effusion. Normal size and normal respiratory collapse consistent with normal right atrial pressure. Electronically Signed By: Patient Name: MARICRUZ PAPPAS Study Date: 05-Aug-2017 [id number]
== END 2017-08-06 13:20 | disposition home or self-care (01) | DRG 247 ==
LOC: E/R 18:58 → SDS 19:00 → CCL 19:00 → REC 22:25 → ICU 08-05 02:01 → MS4 08-05 08:25
PROVIDERS: ADMIT Family Medicine; ATTEND Family Medicine
PROC: B211YZZ Fluoroscopy of Multiple Coronary Arteries using Other Contrast (ICD-10-PCS; 2017-08-04)
PROC: B215YZZ Fluoroscopy of Left Heart using Other Contrast (ICD-10-PCS; 2017-08-04)
PROC: 027034Z Dilation of Coronary Artery, One Artery with Drug-eluting Intraluminal Device, Percutaneous Approach (ICD-10-PCS; principal; 2017-08-04 19:30)
PROC: 4A023N7 Measurement of Cardiac Sampling and Pressure, Left Heart, Percutaneous Approach (ICD-10-PCS; 2017-08-04 19:30)
DX: I21.02 ST elevation (STEMI) myocardial infarction involving left anterior descending coronary artery (principal); N17.9 Acute kidney failure, unspecified; I13.10 Hypertensive heart and chronic kidney disease without heart failure, with stage 1 through stage 4 chronic kidney disease, or unspecified chronic kidney disease; E11.9 Type 2 diabetes mellitus without complications; E78.5 Hyperlipidemia, unspecified; I25.10 Atherosclerotic heart disease of native coronary artery without angina pectoris; N18.9 Chronic kidney disease, unspecified
CPT/HCPCS: 36415; 71010; 80048; 80053; 80061; 82550; 82553; 83036; 83735; 84100; 84484; 84560; 85025; 85610; 85730; 86592; 86703; 86704; 86706; 86708; 86709; 86803; 87081; 87340; 93005; 93306; 93458; 96374; 96375; 96376; C1725; C1874; C1887; C9113; C9606; J1644; J2250; J2270; J2405; J3010; J7030; Q9967